=== PATIENT | male | born 1995 | race Caucasian/White ===

== ENCOUNTER 2018-07-22 19:35 | Emergency (ER) | payer MEDICAID ==
[2018-07-22] MEDS: TETRACAINE 0.5% 4 ML OPH RIGHT EYE (22:49)
[2018-07-22] MEDS: FLUORESCEIN STRIP RIGHT EYE (22:49)
[2018-07-22] MEDS: OPHTHALMIC IRRIG SOLUTION 120 ML LEFT EYE (22:52)
== END 2018-07-22 23:15 | disposition home or self-care (01) ==
LOC: FTE 19:35
DX: S05.01XA Injury of conjunctiva and corneal abrasion without foreign body, right eye, initial encounter (principal); X58.XXXA Exposure to other specified factors, initial encounter; Y92.9 Unspecified place or not applicable
CPT/HCPCS: 99283; Z7610